=== PATIENT | female | born 1960 | race Caucasian/White ===

== ENCOUNTER 2019-03-12 00:02 | Inpatient (IN) | payer MEDICARE, MEDICAID ==
[~2019-03-12] VITALS: Ht 165.1 cm; Wt 95.7 kg
[2019-03-12] MEDS ORDERED: SODIUM CHLORIDE 0.9% 1,000 ML IV ONE (01:57)
[2019-03-12] MEDS ORDERED: KETOROLAC 30MG/ML VIAL IV STA (01:57)
[2019-03-12] MEDS ORDERED: ONDANSETRON HCL 4MG/2ML INJ IV STA (01:57)
[2019-03-12 02:22] LABS: BASOPHILS % 0.8 % (0.0-2.0); HEMATOCRIT. 33.9 % (36.0-48.0); LYMPHOCYTES % 36.7 % (20.0-50.0); MEAN CORPUSCULAR HEMOGLOBIN 25.1 pg (28.0-32.0); MEAN CORPUSCULAR VOLUME 77.5 fL (81.0-99.0); MEAN PLATELET VOLUME 8.4 fl (7.4-10.4); MONOCYTES % 8.2 % (2.0-8.0); NEUTROPHILS % 48.3 % (40.0-76.0); PLATELET 212 x1000/uL (130-400); RED BLOOD CELL COUNT 4.38 mill/uL (4.2-5.4); RED CELL DISTRIBUTION WIDTH 16.6 % (11.6-14.6)
[2019-03-12 02:26] LABS: CHLORIDE 114 mEq/L (98-107)
[2019-03-12 02:28] LABS: PROTHROMBIN TIME 10.2 sec (9.6-11.0)
[2019-03-12 03:18] LABS: CLARITY URINE TURBID (CLEAR); COLOR URINE YELLOW (YELLOW); KETONES URINE NEGATIVE (NEGATIVE); LEUKOCYTE ESTERASE URINE 3+ (NEGATIVE); NITRITE URINE NEGATIVE (NEGATIVE); OCCULT BLOOD URINE 2+ (NEGATIVE); PROTEIN URINE 1+ (NEGATIVE); SPECIFIC GRAVITY URINE 1.018 (1.005-1.030); UROBILINOGEN URINE 0.2 E.U./dL (0.2-1.0)
[2019-03-12] MEDS ORDERED: FENTANYL CITRATE/PF 50MCG/ML 2ML VIAL IV ONE (04:00)
[2019-03-12] MEDS ORDERED: PIPERACILLIN/TAZ 3.375G PREMIX 50 ML IV NR (05:15)
[2019-03-12] MEDS ORDERED: CEFTRIAXONE 1 G PREMIX 50 ML IV NR (05:15)
[2019-03-12] MEDS ORDERED: NITROGLYCERIN 0.4MG TABLET SL SL PRN (07:15)
[2019-03-12] MEDS ORDERED: MAGNESIUM/ALUMINUM HYDROXIDE/SIMETHICONE 30ML UDC PO PRN (07:15)
[2019-03-12] MEDS ORDERED: GUAIFENESIN 200MG/10ML SUGAR FREE UDC PO PRN (07:15)
[2019-03-12] MEDS ORDERED: IPRATROPIUM/ALBUTEROL 0.5-3(2.5)MG/3ML NEB INH PRN (07:15)
[2019-03-12] MEDS ORDERED: DOCUSATE SODIUM 100MG CAPSULE PO PRN (07:15)
[2019-03-12] MEDS ORDERED: ACETAMINOPHEN 325MG TABLET PO PRN (07:15)
[2019-03-12] MEDS ORDERED: ONDANSETRON HCL 4MG/2ML INJ IV PRN (07:15)
[2019-03-12] MEDS ORDERED: ZOLPIDEM TARTRATE 5MG TABLET PO PRN (07:15)
[2019-03-12] MEDS ORDERED: ENOXAPARIN 40MG/0.4ML SYR SUBCUT SCH (07:15)
[2019-03-12] MEDS ORDERED: CLONIDINE 0.1MG TABLET PO PRN (07:15)
[2019-03-12 08:30] VITALS: BP 137/65
[2019-03-12 09:00] VITALS: BP 127/65
[2019-03-12] MEDS ORDERED: PREG100C PO (09:10)
[2019-03-12] MEDS ORDERED: FLUO20CA33 PO (09:10)
[2019-03-12] MEDS ORDERED: SYN150 PO (09:10)
[2019-03-12] MEDS ORDERED: IBUP-2030 PO (09:10)
[2019-03-12] MEDS ORDERED: OMEP20TA2 PO (09:10)
[2019-03-12] MEDS: ENOXAPARIN 30MG/0.3ML SYR SUBCUT SCH ×2 (09:35→20:29)
[2019-03-12] MEDS: TAMSULOSIN HCL 0.4MG SR CAPSULE PO SCH (09:50)
[2019-03-12] MEDS: FAMOTIDINE 20MG TABLET PO SCH ×2 (09:51→20:29)
[2019-03-12] MEDS: DEXT 5%/0.45% NACL 1000ML 1,000 ML IV SCH ×2 (09:54→23:30)
[2019-03-12 10:37] LABS: *COCAINE SCREEN URINE NEGATIVE (NEGATIVE)
[2019-03-12 10:39] LABS: *AMPHETAMINES SCREEN URINE NEGATIVE (NEGATIVE); *BARBITURATES SCREEN URINE NEGATIVE (NEGATIVE); CANNABINOID URINE SCREEN NEGATIVE (NEGATIVE); METHADONE URINE SCREEN NEGATIVE (NEGATIVE); OPIATES URINE SCREEN NEGATIVE (NEGATIVE); PHENCYCLIDINE URINE SCREEN NEGATIVE (NEGATIVE)
[2019-03-12 10:40] LABS: *BENZODIAZEPINES SCREEN URINE NEGATIVE (NEGATIVE)
[2019-03-12] MEDS: KETOROLAC 15MG/ML VIAL IV PRN (11:33)
[2019-03-12] MEDS: LEVOFLOXACIN 500MG PREMIX 100 ML IV SCH (11:49)
[2019-03-12 12:00] VITALS: BP 124/41
[2019-03-12] MEDS: HYDROMORPHONE HCL/PF 2MG/ML CPJ IV PRN ×2 (12:53→20:36)
[2019-03-12 16:00] VITALS: BP 102/47
[2019-03-12] MEDS ORDERED: MIDAZOLAM HCL 2 MG/2 ML VIAL ONE (17:13)
[2019-03-12] MEDS ORDERED: FENTANYL CITRATE/PF 50MCG/ML 2ML VIAL ONE (17:13)
[2019-03-12] MEDS ORDERED: PROPOFOL 200MG/20ML VIAL IV ONE (17:13)
[2019-03-12] MEDS ORDERED: ROCURONIUM BROMIDE 10MG/ML VIAL 5ML IV ONE (17:20)
[2019-03-12] MEDS ORDERED: LIDOCAINE HCL/PF 1% 10 MG/ML 5ML VIAL ONE (17:22)
[2019-03-12] MEDS ORDERED: EPHEDRINE SULFATE 50MG/ML VIAL ONE (17:34)
[2019-03-12] MEDS ORDERED: SODIUM CHLORIDE 0.9% 10ML VIAL ONE (17:34)
[2019-03-12] MEDS ORDERED: GLYCOPYRROLATE 0.2 MG/ML 2ML VIAL ONE (17:37)
[2019-03-12] MEDS ORDERED: DEXAMETHASONE 4MG/ML 1ML VIAL ONE (17:43)
[2019-03-12] MEDS ORDERED: ONDANSETRON HCL 4MG/2ML INJ ONE (17:43)
[2019-03-12] MEDS ORDERED: HYDROMORPHONE HCL/PF 2MG/ML CPJ IV PRN (18:30)
[2019-03-12] MEDS ORDERED: METOCLOPRAMIDE HCL 10MG/2ML VIAL IV NR (18:30)
[2019-03-12 20:00] VITALS: BP 112/54
[2019-03-13] VITALS: BP 112/46
[2019-03-13] MEDS: HYDROMORPHONE HCL/PF 2MG/ML CPJ IV PRN ×3 (00:35→17:20)
[2019-03-13 04:00] VITALS: BP 107/48
[2019-03-13] MEDS ORDERED: CEFTRIAXONE 1 G PREMIX 50 ML IV SCH (05:00)
[2019-03-13 08:00] VITALS: BP 104/39
[2019-03-13] MEDS: FAMOTIDINE 20MG TABLET PO SCH ×2 (09:08→21:23)
[2019-03-13] MEDS: ENOXAPARIN 30MG/0.3ML SYR SUBCUT SCH ×2 (09:08→21:23)
[2019-03-13] MEDS: TAMSULOSIN HCL 0.4MG SR CAPSULE PO SCH (09:11)
[2019-03-13] MEDS: PREGABALIN 50 MG CAPSULE PO SCH ×2 (10:42→21:23)
[2019-03-13] MEDS: LEVOFLOXACIN 500MG PREMIX 100 ML IV SCH (10:53)
[2019-03-13 12:00] VITALS: BP 113/47
[2019-03-13] MEDS: KETOROLAC 15MG/ML VIAL IV PRN (14:18)
[2019-03-13 16:00] VITALS: BP 114/54
[2019-03-13 20:00] VITALS: BP 98/41
[2019-03-13] MEDS: DEXT 5%/0.45% NACL 1000ML 1,000 ML IV SCH (21:23)
[2019-03-14] VITALS: BP 102/47
[2019-03-14 04:00] VITALS: BP 105/59
[2019-03-14] MEDS: CEFTRIAXONE 1 G PREMIX 50 ML IV SCH (05:04)
[2019-03-14] MEDS: HYDROMORPHONE HCL/PF 2MG/ML CPJ IV PRN (05:34)
[2019-03-14] MEDS: DEXT 5%/0.45% NACL 1000ML 1,000 ML IV SCH (05:35)
[2019-03-14] MEDS: ENOXAPARIN 30MG/0.3ML SYR SUBCUT SCH ×2 (09:13→21:12)
[2019-03-14] MEDS: FAMOTIDINE 20MG TABLET PO SCH ×2 (09:13→21:12)
[2019-03-14] MEDS: PREGABALIN 50 MG CAPSULE PO SCH ×2 (09:13→21:12)
[2019-03-14] MEDS: TAMSULOSIN HCL 0.4MG SR CAPSULE PO SCH (09:14)
[2019-03-14] MEDS ORDERED: LEVOFLOXACIN 500MG PREMIX 100 ML IV SCH (11:00)
[2019-03-14] MEDS: KETOROLAC 15MG/ML VIAL IV PRN ×2 (14:15→20:27)
[2019-03-14 20:00] VITALS: BP 110/59
[2019-03-15] VITALS: BP 100/60
[2019-03-15 04:00] VITALS: BP 100/65
[2019-03-15] MEDS: CEFTRIAXONE 1 G PREMIX 50 ML IV SCH (05:25)
[2019-03-15 08:00] VITALS: BP 129/66
[2019-03-15] MEDS: KETOROLAC 15MG/ML VIAL IV PRN ×2 (08:22→09:17)
[2019-03-15] MEDS: PREGABALIN 50 MG CAPSULE PO SCH (08:24)
[2019-03-15] MEDS: FAMOTIDINE 20MG TABLET PO SCH (08:24)
[2019-03-15] MEDS: ENOXAPARIN 30MG/0.3ML SYR SUBCUT SCH (08:25)
[2019-03-15] MEDS: TAMSULOSIN HCL 0.4MG SR CAPSULE PO SCH (08:25)
[2019-03-15] MEDS: DEXT 5%/0.45% NACL 1000ML 1,000 ML IV SCH (08:36)
[2019-03-15] MEDS ORDERED: LEVOFLOXACIN 500MG TABLET PO SCH (11:00)
[2019-03-15 11:33] VITALS: BP 114/51
[2019-03-15 12:00] VITALS: BP 114/51
== END 2019-03-15 13:35 | disposition home health service (06) | DRG 660 ==
LOC: ER 00:02 → 7WST 05:08 → EDBEDREQTM 05:26 → EDBEDREQ 05:26 → ENRESERV 07:03 → SUPCPDRO 07:07
PROVIDERS: ADMIT Internal Medicine; ATTEND Internal Medicine
PROC: 0TF68ZZ Fragmentation in Right Ureter, Via Natural or Artificial Opening Endoscopic (ICD-10-PCS; principal; 2019-03-12)
PROC: 0T768DZ Dilation of Right Ureter with Intraluminal Device, Via Natural or Artificial Opening Endoscopic (ICD-10-PCS; 2019-03-12)
DX: N13.6 Pyonephrosis (principal); E44.1 Mild protein-calorie malnutrition; D63.8 Anemia in other chronic diseases classified elsewhere; F90.9 Attention-deficit hyperactivity disorder, unspecified type; J45.909 Unspecified asthma, uncomplicated; G89.4 Chronic pain syndrome; Z88.1 Allergy status to other antibiotic agents; Z88.7 Allergy status to serum and vaccine; Z88.8 Allergy status to other drugs, medicaments and biological substances; Z68.35 Body mass index [BMI] 35.0-35.9, adult; Z87.442 Personal history of urinary calculi
CPT/HCPCS: 36415; 74176; 74430; 80061; 80305; 83036; 83605; 87077; 87186; 93970; 96374; 97162; 97166; 99285; C2617; J0696; J1100; J1170; J1650; J1885; J1956; J2250; J2405; J2543; J2704; J3010; J3490; J7030; J7050

== ENCOUNTER 2019-04-07 19:33 | Emergency (ER) | payer MEDICARE, MEDICAID ==
[~2019-04-07] VITALS: Ht 165.1 cm; Wt 98.7 kg
[~2019-04-07 19:33] MED LIST: FLUO20CA33 PO; IBUP-2030 PO; OMEP20TA2 PO; PREG100C PO; SYN150 PO
[2019-04-07] MEDS ORDERED: CYCLOBENZAPRINE 10MG TABLET PO ONE (20:00)
[2019-04-07 21:03] VITALS: BP 119/60
== END 2019-04-07 21:07 | disposition home or self-care (01) ==
LOC: ER 19:43
DX: S80.01XA Contusion of right knee, initial encounter (principal); S16.1XXA Strain of muscle, fascia and tendon at neck level, initial encounter; W01.0XXA Fall on same level from slipping, tripping and stumbling without subsequent striking against object, initial encounter; Y93.89 Activity, other specified; Y92.89 Other specified places as the place of occurrence of the external cause
CPT/HCPCS: 73562; 99283

== ENCOUNTER 2019-04-16 18:15 | Emergency (ER) | payer MEDICARE, MEDICAID ==
[~2019-04-16] VITALS: Ht 165.1 cm; Wt 70.0 kg
[2019-04-16] MEDS ORDERED: KETOROLAC 30MG/ML VIAL IV ONE (23:00)
[2019-04-16 23:44] LABS: BASOPHILS % 0.5 % (0.0-2.0); EOSINOPHILS % 8.5 % (0.0-5.0); HEMATOCRIT. 35.8 % (36.0-48.0); HEMOGLOBIN. 11.7 g/dL (12.0-16.0); LYMPHOCYTES % 36.1 % (20.0-50.0); MEAN CORPUSCULAR HEMOGLOBIN 25.3 pg (28.0-32.0); MEAN CORPUSCULAR VOLUME 77.6 fL (81.0-99.0); MEAN PLATELET VOLUME 8.9 fl (7.4-10.4); MONOCYTES % 8.3 % (2.0-8.0); NEUTROPHILS % 46.6 % (40.0-76.0); PLATELET 165 x1000/uL (130-400); RED BLOOD CELL COUNT 4.62 mill/uL (4.2-5.4); RED CELL DISTRIBUTION WIDTH 17.4 % (11.6-14.6)
[2019-04-16 23:48] LABS: INR 0.9; PROTHROMBIN TIME 9.6 sec (9.6-11.0)
[2019-04-16 23:50] LABS: CHLORIDE 113 mEq/L (98-107)
[2019-04-17] MEDS ORDERED: OXYCODONE HCL/ACETAMINOPHEN 5/325MG TABLET PO ONE (00:45)
[2019-04-17 01:31] LABS: CLARITY URINE CLOUDY (CLEAR); COLOR URINE YELLOW (YELLOW); KETONES URINE NEGATIVE (NEGATIVE); LEUKOCYTE ESTERASE URINE 3+ (NEGATIVE); NITRITE URINE NEGATIVE (NEGATIVE); OCCULT BLOOD URINE 3+ (NEGATIVE); PROTEIN URINE 2+ (NEGATIVE); SPECIFIC GRAVITY URINE 1.018 (1.005-1.030); UROBILINOGEN URINE 0.2 E.U./dL (0.2-1.0)
[2019-04-17 01:50] VITALS: BP 118/49
== END 2019-04-17 01:53 | disposition home or self-care (01) ==
LOC: ER 18:15
DX: N39.0 Urinary tract infection, site not specified (principal); N93.9 Abnormal uterine and vaginal bleeding, unspecified; Z98.890 Other specified postprocedural states
CPT/HCPCS: 36415; 74176; 76705; 80053; 81003; 83690; 85025; 85610; 87077; 87086; 87186; 96374; 99284; J1885

== ENCOUNTER 2019-05-07 18:14 | Emergency (ER) | payer MEDICARE, MEDICAID ==
[~2019-05-07] VITALS: Ht 165.1 cm; Wt 91.0 kg
[2019-05-07] MEDS ORDERED: SODIUM CHLORIDE 0.9% 1,000 ML IV ONE (19:58)
[2019-05-07 20:06] LABS: CLARITY URINE CLOUDY (CLEAR); COLOR URINE YELLOW (YELLOW); KETONES URINE NEGATIVE (NEGATIVE); LEUKOCYTE ESTERASE URINE 3+ (NEGATIVE); NITRITE URINE NEGATIVE (NEGATIVE); OCCULT BLOOD URINE 3+ (NEGATIVE); PROTEIN URINE 2+ (NEGATIVE); SPECIFIC GRAVITY URINE 1.016 (1.005-1.030); UROBILINOGEN URINE 0.2 E.U./dL (0.2-1.0)
[2019-05-07 20:08] LABS: BASOPHILS % 0.7 % (0.0-2.0); EOSINOPHILS % 7.5 % (0.0-5.0); HEMATOCRIT. 42.7 % (36.0-48.0); HEMOGLOBIN. 13.9 g/dL (12.0-16.0); LYMPHOCYTES % 28.7 % (20.0-50.0); MEAN CORPUSCULAR HEMOGLOBIN 25.4 pg (28.0-32.0); MONOCYTES % 5.4 % (2.0-8.0); NEUTROPHILS % 57.7 % (40.0-76.0); PLATELET 216 x1000/uL (130-400); RED BLOOD CELL COUNT 5.47 mill/uL (4.2-5.4)
[2019-05-07 20:14] LABS: CHLORIDE 109 mEq/L (98-107)
[2019-05-07] MEDS ORDERED: CEFTRIAXONE 1 G PREMIX 50 ML IV ONE (20:30)
[2019-05-07] MEDS ORDERED: IOHEXOL-300 100 ML BOTTLE ONE (21:40)
[2019-05-08] MEDS ORDERED: ACETAMINOPHEN 500MG TABLET PO ONE (00:30)
[2019-05-08 00:46] VITALS: BP 145/81
[2019-05-08] MEDS ORDERED: HYDR2TAB4 MT (10:24)
== END 2019-05-08 02:12 | disposition home or self-care (01) ==
LOC: ER 18:14 → CANBEDREQ 05-08 03:00
DX: N30.00 Acute cystitis without hematuria (principal); N28.9 Disorder of kidney and ureter, unspecified; R03.0 Elevated blood-pressure reading, without diagnosis of hypertension
CPT/HCPCS: 36415; 71045; 74177; 80053; 81003; 83605; 84145; 84484; 85025; 85610; 87040; 87086; 93005; 96365; 96366; 99284; J0696; J7030; Q9967

== ENCOUNTER 2019-05-08 02:15 | Inpatient (IN) | payer MEDICARE, MEDICAID ==
[~2019-05-08] VITALS: Ht 165.1 cm; Wt 92.5 kg
[2019-05-08] MEDS ORDERED: ONDANSETRON HCL 4MG/2ML INJ IV STA (03:13)
[2019-05-08] MEDS ORDERED: SODIUM CHLORIDE 0.9% 1,000 ML IV ONE (03:13)
[2019-05-08 03:42] LABS: BASOPHILS % 0.8 % (0.0-2.0); EOSINOPHILS % 6.3 % (0.0-5.0); HEMATOCRIT. 37.9 % (36.0-48.0); HEMOGLOBIN. 12.6 g/dL (12.0-16.0); LYMPHOCYTES % 31.7 % (20.0-50.0); MEAN CORPUSCULAR HEMOGLOBIN 25.8 pg (28.0-32.0); MEAN CORPUSCULAR VOLUME 77.6 fL (81.0-99.0); MEAN PLATELET VOLUME 8.9 fl (7.4-10.4); MONOCYTES % 6.3 % (2.0-8.0); NEUTROPHILS % 54.9 % (40.0-76.0); PLATELET 187 x1000/uL (130-400); RED BLOOD CELL COUNT 4.88 mill/uL (4.2-5.4); RED CELL DISTRIBUTION WIDTH 17.2 % (11.6-14.6)
[2019-05-08 03:48] LABS: CHLORIDE 111 mEq/L (98-107)
[2019-05-08 03:58] LABS: PROTHROMBIN TIME 10.2 sec (9.6-11.0)
[2019-05-08] MEDS ORDERED: HYDROMORPHONE HCL/PF 2MG/ML CPJ IV NR (04:30)
[2019-05-08] MEDS ORDERED: HYDROCODONE/ACETAMINOPHEN 5/325MG TABLET PO PRN (07:15)
[2019-05-08] MEDS ORDERED: DOCUSATE SODIUM 100MG CAPSULE PO PRN (07:15)
[2019-05-08] MEDS ORDERED: GUAIFENESIN 200MG/10ML SUGAR FREE UDC PO PRN (07:15)
[2019-05-08] MEDS ORDERED: NA PHOS,M-B/NA PHOS,DI-BA ENEMA 118ML PR PRN (07:15)
[2019-05-08] MEDS ORDERED: IPRATROPIUM/ALBUTEROL 0.5-3(2.5)MG/3ML NEB NEB PRN (07:15)
[2019-05-08] MEDS ORDERED: CLONIDINE 0.1MG TABLET PO PRN (07:15)
[2019-05-08] MEDS ORDERED: MAGNESIUM/ALUMINUM HYDROXIDE/SIMETHICONE 30ML UDC PO PRN (07:15)
[2019-05-08] MEDS ORDERED: DIPHENHYDRAMINE 50MG/ML VIAL IV PRN (07:15)
[2019-05-08] MEDS ORDERED: ACETAMINOPHEN 325MG TABLET PO PRN (07:15)
[2019-05-08 08:40] VITALS: BP 101/69
[2019-05-08 08:45] VITALS: BP 117/56
[2019-05-08] MEDS ORDERED: METRONIDAZOLE 500 MG PREMIX 100 ML IV SCH (10:00)
[2019-05-08] MEDS: HYDROMORPHONE HCL/PF 2MG/ML CPJ IV PRN ×3 (10:13→20:31)
[2019-05-08] MEDS ORDERED: HYDR2TAB4 MT (10:24)
[2019-05-08] MEDS: ENOXAPARIN 30MG/0.3ML SYR SUBCUT SCH ×2 (10:54→20:23)
[2019-05-08] MEDS: SODIUM CHLORIDE 0.45% 1,000 ML IV SCH ×2 (11:57→22:58)
[2019-05-08 12:00] VITALS: BP 101/69
[2019-05-08] MEDS: LEVOFLOXACIN 500MG PREMIX 100 ML IV SCH (13:42)
[2019-05-08 16:00] VITALS: BP 100/48
[2019-05-08] MEDS: METRONIDAZOLE 500 MG PREMIX 100 ML IV SCH (20:21)
[2019-05-08 20:34] VITALS: BP 112/46
[2019-05-09] VITALS: BP 126/57
[2019-05-09] MEDS: HYDROMORPHONE HCL/PF 2MG/ML CPJ IV PRN ×4 (01:40→20:05)
[2019-05-09 04:00] VITALS: BP 137/61
[2019-05-09] MEDS: METRONIDAZOLE 500 MG PREMIX 100 ML IV SCH ×3 (04:51→20:54)
[2019-05-09] MEDS: ONDANSETRON HCL 4MG/2ML INJ IV PRN (05:08)
[2019-05-09] MEDS: LORAZEPAM 2MG/ML CPJ IV PRN (05:09)
[2019-05-09 06:16] LABS: BASOPHILS % 0.7 % (0.0-2.0); EOSINOPHILS % 12.5 % (0.0-5.0); HEMATOCRIT. 35.7 % (36.0-48.0); HEMOGLOBIN. 11.9 g/dL (12.0-16.0); LYMPHOCYTES % 32.2 % (20.0-50.0); MEAN CORPUSCULAR HEMOGLOBIN 25.9 pg (28.0-32.0); MEAN CORPUSCULAR VOLUME 78.1 fL (81.0-99.0); MEAN PLATELET VOLUME 9.4 fl (7.4-10.4); MONOCYTES % 7.7 % (2.0-8.0); NEUTROPHILS % 46.9 % (40.0-76.0); PLATELET 171 x1000/uL (130-400); RED BLOOD CELL COUNT 4.58 mill/uL (4.2-5.4)
[2019-05-09 07:15] LABS: CHLORIDE 109 mEq/L (98-107)
[2019-05-09] MEDS: LEVOTHYROXINE SODIUM 150MCG TABLET PO SCH ×2 (07:20→08:21)
[2019-05-09 08:00] VITALS: BP 107/56
[2019-05-09] MEDS: PREGABALIN 50 MG CAPSULE PO SCH ×3 (08:21→16:44)
[2019-05-09] MEDS: OMEPRAZOLE 20MG CAPSULE EXTENDED RELEASE PO SCH (08:22)
[2019-05-09] MEDS: FLUOXETINE HCL 20MG CAPSULE PO SCH (08:22)
[2019-05-09] MEDS: ENOXAPARIN 30MG/0.3ML SYR SUBCUT SCH ×2 (08:22→20:58)
[2019-05-09] MEDS: LEVOFLOXACIN 500MG PREMIX 100 ML IV SCH (09:11)
[2019-05-09] MEDS: SODIUM CHLORIDE 0.45% 1,000 ML IV SCH ×2 (11:40→20:54)
[2019-05-09 12:00] VITALS: BP 109/71
[2019-05-09 16:00] VITALS: BP 121/52
[2019-05-09 20:00] VITALS: BP 113/62
[2019-05-10] VITALS: BP 100/54
[2019-05-10] MEDS: HYDROMORPHONE HCL/PF 2MG/ML CPJ IV PRN ×6 (01:21→21:26)
[2019-05-10 04:00] VITALS: BP 132/62
[2019-05-10] MEDS: METRONIDAZOLE 500 MG PREMIX 100 ML IV SCH ×3 (04:37→21:32)
[2019-05-10] MEDS: LEVOTHYROXINE SODIUM 150MCG TABLET PO SCH (06:50)
[2019-05-10] MEDS: OMEPRAZOLE 20MG CAPSULE EXTENDED RELEASE PO SCH (06:50)
[2019-05-10 08:13] VITALS: BP 118/46
[2019-05-10] MEDS: FLUOXETINE HCL 20MG CAPSULE PO SCH (09:12)
[2019-05-10] MEDS: PREGABALIN 50 MG CAPSULE PO SCH ×3 (09:12→17:22)
[2019-05-10] MEDS: ENOXAPARIN 30MG/0.3ML SYR SUBCUT SCH ×2 (09:13→21:33)
[2019-05-10] MEDS: LEVOFLOXACIN 500MG PREMIX 100 ML IV SCH (10:35)
[2019-05-10 12:40] VITALS: BP 103/53
[2019-05-10] MEDS: SODIUM CHLORIDE 0.45% 1,000 ML IV SCH (16:26)
[2019-05-10 17:09] VITALS: BP 120/48
[2019-05-10 20:29] VITALS: BP 103/49
[2019-05-11 00:26] VITALS: BP 147/81
[2019-05-11] MEDS: HYDROMORPHONE HCL/PF 2MG/ML CPJ IV PRN ×5 (01:11→20:25)
[2019-05-11] MEDS: SODIUM CHLORIDE 0.45% 1,000 ML IV SCH ×2 (03:40→17:56)
[2019-05-11 04:00] VITALS: BP 104/63
[2019-05-11] MEDS: METRONIDAZOLE 500 MG PREMIX 100 ML IV SCH ×3 (04:50→20:23)
[2019-05-11] MEDS: LEVOTHYROXINE SODIUM 150MCG TABLET PO SCH (08:58)
[2019-05-11] MEDS: PREGABALIN 50 MG CAPSULE PO SCH ×3 (08:58→17:56)
[2019-05-11] MEDS: FLUOXETINE HCL 20MG CAPSULE PO SCH (08:58)
[2019-05-11] MEDS: ENOXAPARIN 30MG/0.3ML SYR SUBCUT SCH ×2 (09:00→23:09)
[2019-05-11] MEDS: OMEPRAZOLE 20MG CAPSULE EXTENDED RELEASE PO SCH (09:12)
[2019-05-11 10:29] VITALS: BP 112/53
[2019-05-11] MEDS: LEVOFLOXACIN 500MG PREMIX 100 ML IV SCH (12:08)
[2019-05-11] MEDS: ONDANSETRON HCL 4MG/2ML INJ IV PRN (14:21)
[2019-05-11 14:29] VITALS: BP 115/44
[2019-05-11 20:00] VITALS: BP 107/63
[2019-05-11] MEDS: LORAZEPAM 2MG/ML CPJ IV PRN (23:08)
[2019-05-12] VITALS: BP 110/61
[2019-05-12 04:00] VITALS: BP 147/69
[2019-05-12] MEDS: METRONIDAZOLE 500 MG PREMIX 100 ML IV SCH ×3 (04:44→21:33)
[2019-05-12] MEDS: ONDANSETRON HCL 4MG/2ML INJ IV PRN ×2 (04:44→17:43)
[2019-05-12] MEDS: HYDROMORPHONE HCL/PF 2MG/ML CPJ IV PRN ×5 (04:45→21:32)
[2019-05-12] MEDS: SODIUM CHLORIDE 0.45% 1,000 ML IV SCH ×2 (06:20→21:38)
[2019-05-12] MEDS: LEVOTHYROXINE SODIUM 150MCG TABLET PO SCH (06:38)
[2019-05-12 08:04] LABS: BASOPHILS % 0.7 % (0.0-2.0); HEMATOCRIT. 36.2 % (36.0-48.0); HEMOGLOBIN. 11.8 g/dL (12.0-16.0); LYMPHOCYTES % 25.4 % (20.0-50.0); MEAN CORPUSCULAR HEMOGLOBIN 25.6 pg (28.0-32.0); MEAN CORPUSCULAR VOLUME 78.8 fL (81.0-99.0); MEAN PLATELET VOLUME 9.3 fl (7.4-10.4); MONOCYTES % 7.1 % (2.0-8.0); NEUTROPHILS % 57.8 % (40.0-76.0); PLATELET 150 x1000/uL (130-400); RED CELL DISTRIBUTION WIDTH 16.6 % (11.6-14.6)
[2019-05-12] MEDS: PREGABALIN 50 MG CAPSULE PO SCH ×3 (09:52→17:31)
[2019-05-12] MEDS: FLUOXETINE HCL 20MG CAPSULE PO SCH (09:53)
[2019-05-12] MEDS: FAMOTIDINE 20MG TABLET PO SCH ×2 (09:53→21:36)
[2019-05-12] MEDS: ENOXAPARIN 30MG/0.3ML SYR SUBCUT SCH ×2 (09:53→21:36)
[2019-05-12] MEDS: LEVOFLOXACIN 500MG PREMIX 100 ML IV SCH (11:37)
[2019-05-12 12:00] VITALS: BP 131/57
[2019-05-12 16:00] VITALS: BP 117/53
[2019-05-12 20:30] VITALS: BP 102/66
[2019-05-13] VITALS (7 sets, daily range): BP systolic 126–152; BP diastolic 54–87
[2019-05-13] MEDS: HYDROMORPHONE HCL/PF 2MG/ML CPJ IV PRN ×2 (01:31→05:30)
[2019-05-13] MEDS: ONDANSETRON HCL 4MG/2ML INJ IV PRN (01:38)
[2019-05-13] MEDS: SODIUM CHLORIDE 0.45% 1,000 ML IV SCH (05:25)
[2019-05-13] MEDS: METRONIDAZOLE 500 MG PREMIX 100 ML IV SCH ×2 (05:26→11:48)
[2019-05-13] MEDS: LEVOTHYROXINE SODIUM 150MCG TABLET PO SCH (07:10)
[2019-05-13] MEDS: PREGABALIN 50 MG CAPSULE PO SCH ×3 (08:44→16:50)
[2019-05-13] MEDS: ENOXAPARIN 30MG/0.3ML SYR SUBCUT SCH (08:44)
[2019-05-13] MEDS: FAMOTIDINE 20MG TABLET PO SCH (08:44)
[2019-05-13] MEDS: FLUOXETINE HCL 20MG CAPSULE PO SCH (08:45)
[2019-05-13] MEDS ORDERED: HYDROCODONE/ACETAMINOPHEN 5/325MG TABLET PO NR (09:15)
[2019-05-13] MEDS ORDERED: LORAZEPAM 2MG/ML CPJ IV ONE (12:45)
[2019-05-13] MEDS: LEVOFLOXACIN 500MG PREMIX 100 ML IV SCH (15:10)
== END 2019-05-13 22:00 | DRG 445 ==
LOC: ER 02:15 → EDBEDREQ 03:17 → 6WST 05:28 → EDBEDREQTM 05:31 → EDBEDREQ 05:31 → ENRESERV 07:34 → 8WST 05-12 22:10
PROVIDERS: ADMIT Internal Medicine; ATTEND Internal Medicine
DX: K80.70 Calculus of gallbladder and bile duct without cholecystitis without obstruction (principal); N20.2 Calculus of kidney with calculus of ureter; R65.10 Systemic inflammatory response syndrome (SIRS) of non-infectious origin without acute organ dysfunction; E44.0 Moderate protein-calorie malnutrition; E86.0 Dehydration; G89.29 Other chronic pain; F90.9 Attention-deficit hyperactivity disorder, unspecified type; J45.909 Unspecified asthma, uncomplicated; D50.9 Iron deficiency anemia, unspecified; I10 Essential (primary) hypertension; F32.9 Major depressive disorder, single episode, unspecified; Z53.20 Procedure and treatment not carried out because of patient's decision for unspecified reasons; E03.9 Hypothyroidism, unspecified; Z79.890 Hormone replacement therapy; Z79.899 Other long term (current) drug therapy; Z88.8 Allergy status to other drugs, medicaments and biological substances; Z88.5 Allergy status to narcotic agent; Z87.442 Personal history of urinary calculi; Z88.1 Allergy status to other antibiotic agents; Z87.440 Personal history of urinary (tract) infections; Z91.030 Bee allergy status; Z88.7 Allergy status to serum and vaccine
CPT/HCPCS: 36415; 71045; 74177; 74181; 76705; 78227; 80048; 80076; 81003; 83605; 84145; 84484; 93005; 96374; 99285; A9537; C1893; J1170; J1650; J1956; J2060; J2405; J3490; J7030

== ENCOUNTER 2019-06-18 22:50 | Inpatient (IN) | payer MEDICARE, MEDICAID ==
[~2019-06-18] VITALS: Ht 165.1 cm; Wt 96.7 kg
[~2019-06-18 22:50] MED LIST changes: +HYDR2TAB4 MT
[2019-06-18] MEDS ORDERED: MORPHINE SULFATE 4 MG/ML CPJ (NOT FOR IM USE) IV STA (23:51)
[2019-06-18] MEDS ORDERED: ONDANSETRON HCL 4MG/2ML INJ IV STA (23:51)
[2019-06-18] MEDS ORDERED: SODIUM CHLORIDE 0.9% 1,000 ML IV ONE (23:51)
[2019-06-18 23:58] LABS: BASOPHILS % 0.6 % (0.0-2.0); EOSINOPHILS % 8.3 % (0.0-5.0); HEMATOCRIT. 33.8 % (36.0-48.0); LYMPHOCYTES % 37.2 % (20.0-50.0); MEAN CORPUSCULAR HEMOGLOBIN 25.4 pg (28.0-32.0); MEAN PLATELET VOLUME 9.1 fl (7.4-10.4); MONOCYTES % 9.7 % (2.0-8.0); NEUTROPHILS % 44.2 % (40.0-76.0); PLATELET 154 x1000/uL (130-400); RED BLOOD CELL COUNT 4.34 mill/uL (4.2-5.4); RED CELL DISTRIBUTION WIDTH 15.2 % (11.6-14.6)
[2019-06-19] MEDS ORDERED: KETOROLAC 15MG/ML VIAL IV ONE
[2019-06-19 00:13] LABS: CHLORIDE 111 mEq/L (98-107)
[2019-06-19 02:36] LABS: CLARITY URINE CLOUDY (CLEAR); COLOR URINE YELLOW (YELLOW); KETONES URINE NEGATIVE (NEGATIVE); LEUKOCYTE ESTERASE URINE 3+ (NEGATIVE); NITRITE URINE NEGATIVE (NEGATIVE); OCCULT BLOOD URINE 3+ (NEGATIVE); PH URINE 6.5 (4.5-8.0); PROTEIN URINE 2+ (NEGATIVE); SPECIFIC GRAVITY URINE 1.017 (1.005-1.030); UROBILINOGEN URINE 0.2 E.U./dL (0.2-1.0)
[2019-06-19] MEDS ORDERED: HYDROCODONE/ACETAMINOPHEN 10/325MG TABLET PO ONE ×2 (03:00)
[2019-06-19] MEDS ORDERED: CEFTRIAXONE 1,000 MG in DEXTROSE 5% WATER 50 ML IV NR (05:00)
[2019-06-19] MEDS ORDERED: CEFTRIAXONE 1 G PREMIX 50 ML IV ONE (05:00)
[2019-06-19] MEDS ORDERED: ACETAMINOPHEN 325MG TABLET PO PRN ×2 (05:15→08:30)
[2019-06-19 08:00] VITALS: BP 131/63
[2019-06-19 08:30] VITALS: BP 131/63
[2019-06-19] MEDS ORDERED: IPRATROPIUM/ALBUTEROL 0.5-3(2.5)MG/3ML NEB NEB PRN (08:30)
[2019-06-19] MEDS ORDERED: NITROGLYCERIN 0.4MG TABLET SL SL PRN (08:30)
[2019-06-19] MEDS ORDERED: DIPHENHYDRAMINE 50MG/ML VIAL IV PRN (08:30)
[2019-06-19] MEDS ORDERED: TRAMADOL 50MG TABLET PO PRN (08:30)
[2019-06-19] MEDS ORDERED: LEVOFLOXACIN 500MG PREMIX 100 ML IV SCH (08:30)
[2019-06-19] MEDS ORDERED: DOCUSATE SODIUM 100MG CAPSULE PO PRN (08:30)
[2019-06-19] MEDS ORDERED: KETOROLAC 15MG/ML VIAL IV PRN (08:30)
[2019-06-19] MEDS ORDERED: MAGNESIUM/ALUMINUM HYDROXIDE/SIMETHICONE 30ML UDC PO PRN (08:30)
[2019-06-19] MEDS ORDERED: HYDROCODONE/ACETAMINOPHEN 10/325MG TABLET PO PRN (08:30)
[2019-06-19] MEDS ORDERED: GUAIFENESIN 200MG/10ML SUGAR FREE UDC PO PRN (08:30)
[2019-06-19] MEDS ORDERED: ENOXAPARIN 40MG/0.4ML SYR SUBCUT SCH (08:30)
[2019-06-19] MEDS ORDERED: CLONIDINE 0.1MG TABLET PO PRN (08:30)
[2019-06-19] MEDS ORDERED: ONDANSETRON HCL 4MG/2ML INJ IV PRN (08:30)
[2019-06-19] MEDS ORDERED: CEFTRIAXONE 1 G PREMIX 50 ML IV SCH (09:00)
[2019-06-19] MEDS: FAMOTIDINE 20MG TABLET PO SCH ×2 (09:00→21:46)
[2019-06-19] MEDS: ENOXAPARIN 30MG/0.3ML SYR SUBCUT SCH ×2 (09:47→21:47)
[2019-06-19] MEDS: ZINC SULFATE 220 MG ( 50 ) CAPSULE PO SCH (09:47)
[2019-06-19] MEDS: ASCORBIC ACID 500 MG TABLET PO SCH ×2 (09:47→21:46)
[2019-06-19] MEDS: LEVOTHYROXINE SODIUM 150MCG TABLET PO SCH (11:30)
[2019-06-19 12:00] VITALS: BP 113/49
[2019-06-19] MEDS: LEVOFLOXACIN 500MG PREMIX 100 ML IV SCH (12:29)
[2019-06-19 12:40] LABS: HDL CHOLESTEROL 44 mg/dL (40-59)
[2019-06-19 12:44] LABS: LDL CHOLESTEROL 153 mg/dL (5-100)
[2019-06-19 16:00] VITALS: BP 125/64
[2019-06-19] MEDS: HYDROCODONE/ACETAMINOPHEN 10/325MG TABLET PO PRN ×2 (18:37→22:59)
[2019-06-19 20:00] VITALS: BP 124/64
[2019-06-19] MEDS ORDERED: ZOLPIDEM TARTRATE 5MG TABLET PO PRN (21:00)
[2019-06-20] VITALS: BP 110/58
[2019-06-20 04:00] VITALS: BP 120/54
[2019-06-20] MEDS: LEVOTHYROXINE SODIUM 150MCG TABLET PO SCH (06:37)
[2019-06-20] MEDS: CEFTRIAXONE 1,000 MG in DEXTROSE 5% WATER 50 ML IV SCH (06:37)
[2019-06-20] MEDS: HYDROCODONE/ACETAMINOPHEN 10/325MG TABLET PO PRN ×4 (06:51→22:07)
[2019-06-20] MEDS: ZINC SULFATE 220 MG ( 50 ) CAPSULE PO SCH (09:00)
[2019-06-20] MEDS: ASCORBIC ACID 500 MG TABLET PO SCH ×2 (09:00→22:04)
[2019-06-20] MEDS: FAMOTIDINE 20MG TABLET PO SCH ×2 (09:36→22:04)
[2019-06-20] MEDS: ENOXAPARIN 30MG/0.3ML SYR SUBCUT SCH ×2 (09:37→22:06)
[2019-06-20 10:16] LABS: *BENZODIAZEPINES SCREEN URINE NEGATIVE (NEGATIVE); *COCAINE SCREEN URINE NEGATIVE (NEGATIVE)
[2019-06-20 10:17] LABS: *AMPHETAMINES SCREEN URINE NEGATIVE (NEGATIVE); *BARBITURATES SCREEN URINE NEGATIVE (NEGATIVE); CANNABINOID URINE SCREEN NEGATIVE (NEGATIVE); METHADONE URINE SCREEN NEGATIVE (NEGATIVE); OPIATES URINE SCREEN PRESUMTIVE POSITIVE (NEGATIVE); PHENCYCLIDINE URINE SCREEN NEGATIVE (NEGATIVE)
[2019-06-20] MEDS: LEVOFLOXACIN 500MG PREMIX 100 ML IV SCH (10:49)
[2019-06-20 20:00] VITALS: BP 127/60
[2019-06-20] MEDS: LORAZEPAM 0.5MG TABLET PO PRN (22:12)
[2019-06-21] VITALS: BP 123/59
[2019-06-21] MEDS: LORAZEPAM 0.5MG TABLET PO PRN (01:35)
[2019-06-21] MEDS: HYDROCODONE/ACETAMINOPHEN 10/325MG TABLET PO PRN ×5 (02:27→21:39)
[2019-06-21 04:00] VITALS: BP 128/60
[2019-06-21] MEDS: CEFTRIAXONE 1,000 MG in DEXTROSE 5% WATER 50 ML IV SCH (06:58)
[2019-06-21] MEDS: LEVOTHYROXINE SODIUM 150MCG TABLET PO SCH (06:59)
[2019-06-21 08:00] VITALS: BP 106/73
[2019-06-21] MEDS: FAMOTIDINE 20MG TABLET PO SCH ×2 (09:11→21:37)
[2019-06-21] MEDS: ZINC SULFATE 220 MG ( 50 ) CAPSULE PO SCH (09:11)
[2019-06-21] MEDS: ASCORBIC ACID 500 MG TABLET PO SCH ×2 (09:11→21:37)
[2019-06-21] MEDS: ENOXAPARIN 30MG/0.3ML SYR SUBCUT SCH ×2 (09:12→21:38)
[2019-06-21] MEDS: LEVOFLOXACIN 500MG PREMIX 100 ML IV SCH (11:12)
[2019-06-21 12:00] VITALS: BP 146/79
[2019-06-21] MEDS: LINEZOLID 600MG TABLET PO SCH ×2 (13:10→21:37)
[2019-06-21 16:00] VITALS: BP 115/55
[2019-06-21 20:00] VITALS: BP 119/57
[2019-06-22] VITALS: BP 121/53
[2019-06-22] MEDS: HYDROCODONE/ACETAMINOPHEN 10/325MG TABLET PO PRN ×3 (01:56→10:41)
[2019-06-22 04:00] VITALS: BP 104/52
[2019-06-22] MEDS: CEFTRIAXONE 1,000 MG in DEXTROSE 5% WATER 50 ML IV SCH (06:09)
[2019-06-22] MEDS: LEVOTHYROXINE SODIUM 150MCG TABLET PO SCH (06:10)
[2019-06-22 08:00] VITALS: BP 127/57
[2019-06-22] MEDS: ASCORBIC ACID 500 MG TABLET PO SCH (09:11)
[2019-06-22] MEDS: ENOXAPARIN 30MG/0.3ML SYR SUBCUT SCH (09:11)
[2019-06-22] MEDS: FAMOTIDINE 20MG TABLET PO SCH (09:11)
[2019-06-22] MEDS: LINEZOLID 600MG TABLET PO SCH (09:11)
[2019-06-22] MEDS: ZINC SULFATE 220 MG ( 50 ) CAPSULE PO SCH (09:11)
[2019-06-22] MEDS: LEVOFLOXACIN 500MG PREMIX 100 ML IV SCH (10:42)
[2019-06-22 12:00] VITALS: BP 116/53
[2019-06-22 15:37] VITALS: BP 116/53
[2019-06-23] MEDS ORDERED: CEFTRIAXONE 1 G PREMIX 50 ML IV SCH (06:00)
== END 2019-06-22 16:15 | DRG 690 ==
LOC: ER 22:50 → 6EST 06-19 05:14 → ENRESERV 06-19 07:26 → CANRESERV 06-19 07:26 → ENRESERV 06-19 07:42
PROVIDERS: ADMIT Internal Medicine; ATTEND Internal Medicine
DX: N39.0 Urinary tract infection, site not specified (principal); E44.0 Moderate protein-calorie malnutrition; Z87.440 Personal history of urinary (tract) infections; G89.4 Chronic pain syndrome; D63.8 Anemia in other chronic diseases classified elsewhere; E03.9 Hypothyroidism, unspecified; Z87.442 Personal history of urinary calculi; Z90.49 Acquired absence of other specified parts of digestive tract; Z96.0 Presence of urogenital implants; E66.9 Obesity, unspecified; Z91.14 Patient's other noncompliance with medication regimen; Z88.9 Allergy status to unspecified drugs, medicaments and biological substances; Z88.7 Allergy status to serum and vaccine; Z88.1 Allergy status to other antibiotic agents; Z88.5 Allergy status to narcotic agent; Z91.013 Allergy to seafood; Z76.5 Malingerer [conscious simulation]; B96.20 Unspecified Escherichia coli [E. coli] as the cause of diseases classified elsewhere; Z68.35 Body mass index [BMI] 35.0-35.9, adult
CPT/HCPCS: 36415; 74176; 80061; 80305; 81003; 83036; 83605; 84439; 84443; 87077; 87186; 93970; 96374; 99285; J0696; J1650; J1885; J1956; J2270; J2405; J7030; J7060